=== PATIENT | male | born 1960 | race Caucasian/White ===

== ENCOUNTER 2016-06-16 16:13 | Emergency (ER) | payer OTHER ==
[~2016-06-16] VITALS: Ht 167.6 cm; Wt 114.6 kg
[~2016-06-16 16:13] MED LIST: ACIPHEX20 MG PO; ALTACE10 M1 PO; APIDRA100 UNITS/ PO; ASPIRIN81 M1 PO; BUSPAR10 MG PO; CLARITIN10 M3; DITROPAN5 MG PO; ERGOCALCIF50000 UNIT PO; FLOMAX0.4 MG PO; GLUCOPHAGE1000 MG PO; HUMALOG MI100 UNIT/1 SC; HUMALOG100 UNIT/1 SC; HYDROCHLOROTHIA25 MG PO; INDERAL20 MG PO; KEFLEX500 MG PO; LANTUS 10100 UNITS/ SC; LANTUS100 UNIT/2 SC; LEVEMIR100 UNIT/1 SQ; LORTAB 5-325 M1 EACH PO; Lopressor PO; METOPROLOL TART50 MG PO; MOBIC7.5 MG PO; NAPROSYN250 MG PO; OMEPRAZOLE40 M1 PO; PRAVASTATIN SOD40 MG PO; REPAN 50-325-41 EAC1 PO; SOTALOL80 MG PO; VITAMIN D250000 UNIT PO; VITAMIN D50000 UNI1 PO; ZOFRAN ODT4 MG PO
[2016-06-16 17:09] LABS: HEMATOCRIT 39.9 % (38.0-50.0); MCH 31.2 PG (29.0-34.0); MCHC 34.1 G/DL (30.0-36.0); MCV 91.5 FL (86-99); MEAN PLAT.VOLUME 11.6 uM^3 (9.0-12.4); PLATELET COUNT 169 K/uL (156-360); RBC DIS.WIDTH-CV 13.7 % (11.8-14.6); RBC DIS.WIDTH-SD 45.1 % (39-53); RED BLOOD COUNT 4.36 M/uL (4.00-5.50); WHITE BLOOD COUNT 7.4 K/uL (4.1-10.2)
[2016-06-16 17:18] LABS: ADD MIUA? YES; BILIRUBIN NEGATIVE; BLOOD MODERATE; COLOR YELLOW ((YELLOW)); GLUCOSE (STRIP) 50; KETONES 5; LEUKOCYTES NEGATIVE; NITRITE NEGATIVE; PROTEIN (STRIP) NEGATIVE; UROBILINOGEN 0.2 MG/DL (0.2-1.0)
[2016-06-16 17:21] LABS: CHLORIDE 107 mEq/L (99-109); POTASSIUM 4.5 mEq/L (3.7-5.4); SODIUM 142 mEq/L (136-147)
[2016-06-16 17:23] LABS: GLUCOSE 186 mg/dL (70-99)
[2016-06-16 17:24] LABS: ANION GAP 9 MEQ/L (2-14)
[2016-06-16 17:25] LABS: TOTAL BILIRUBIN 0.1 mg/dL (0.0-1.0)
[2016-06-16 17:27] LABS: ALKALINE PHOSPHATASE 65 IU/L (3-129); GFR ESTIMATE (CALCULATED) > 59 mL/min/
[2016-06-16 17:28] LABS: UREA NITROGEN (BUN) 18 mg/dL (9-23)
[2016-06-16 17:48] LABS: MUCUS TRACE /LPF
[2016-06-16 17:49] LABS: CASTS NONE SEEN /LPF; EPITHELIAL CELLS NONE SEEN /HPF; RED BLOOD CELLS NONE SEEN /HPF (0-5)
[2016-06-16 17:50] LABS: BACTERIA NONE SEEN /HPF; CRYSTALS PRESENT; URIC ACID CRYSTALS 4+ /HPF; WHITE BLOOD CELLS NONE SEEN /HPF (0-5)
[2016-06-16 18:22] LABS: POINT-OF-CARE METER ID UU13113800
[2016-06-16 18:31] LABS: CARBON DIOXIDE (BICARBONATE) 27.9 MEQ/L (20-31)
[2016-06-16] MEDS ORDERED: ZOFRAN ODT4 MG PO (19:46)
[2016-06-16] MEDS ORDERED: TORADOL10 MG PO (19:46)
[2016-06-16] MEDS ORDERED: PHENERGAN25 MG PR (19:46)
[2016-06-16] MEDS ORDERED: PERCOCET 5/31 TABLET PO (19:46)
[2016-06-16] MEDS ORDERED: FLOMAX0.4 MG PO (19:46)
[2016-06-16 20:36] VITALS: BP 143/87
[2016-06-19] MEDS ORDERED: HUMULIN R500 UNIT/1 SC ×2 (15:40)
== END 2016-06-16 20:38 | disposition home or self-care (01) ==
LOC: EME 16:13
PROVIDERS: Nurse Practitioner Family
DX: N20.0 Calculus of kidney (principal); R11.2 Nausea with vomiting, unspecified; E11.9 Type 2 diabetes mellitus without complications; I10 Essential (primary) hypertension; Z87.442 Personal history of urinary calculi
CPT/HCPCS: 74177; 80053; 81003; 82803; 82948; 85027; 99281; 99285; J1200; J1885; J2270; J2405; J3010; J7030

== ENCOUNTER 2016-06-22 20:42 | Emergency (ER) | payer OTHER ==
[~2016-06-22] VITALS: Ht 167.6 cm; Wt 115.1 kg
[~2016-06-22 20:42] MED LIST changes: +HUMULIN R500 UNIT/1 SC; +PERCOCET 5/31 TABLET PO; +PHENERGAN25 MG PR; +TORADOL10 MG PO
[2016-06-22 21:03] LABS: HEMATOCRIT 42.5 % (38.0-50.0); MCH 30.8 PG (29.0-34.0); MCHC 34.4 G/DL (30.0-36.0); MCV 89.7 FL (86-99); MEAN PLAT.VOLUME 10.9 uM^3 (9.0-12.4); PLATELET COUNT 245 K/uL (156-360); RBC DIS.WIDTH-CV 13.6 % (11.8-14.6); RBC DIS.WIDTH-SD 43.9 % (39-53); RED BLOOD COUNT 4.74 M/uL (4.00-5.50); WHITE BLOOD COUNT 10.8 K/uL (4.1-10.2)
[2016-06-22 21:04] LABS: ADD MIUA? NO; BILIRUBIN NEGATIVE; BLOOD NEGATIVE; COLOR YELLOW ((YELLOW)); GLUCOSE (STRIP) NEGATIVE; KETONES NEGATIVE; LEUKOCYTES NEGATIVE; NITRITE NEGATIVE; PROTEIN (STRIP) NEGATIVE; SPECIFIC GRAVITY 1.014 (1.000-1.030); UCUL ADDED? NO; UROBILINOGEN 0.2 MG/DL (0.2-1.0)
[2016-06-22 21:08] LABS: SODIUM 135 mEq/L (136-147)
[2016-06-22 21:10] LABS: GLUCOSE 95 mg/dL (70-99)
[2016-06-22 21:11] LABS: ANION GAP 10 MEQ/L (2-14)
[2016-06-22 21:13] LABS: GFR ESTIMATE (CALCULATED) 42 mL/min/
[2016-06-22 21:14] LABS: UREA NITROGEN (BUN) 20 mg/dL (9-23)
[2016-06-22 21:27] LABS: CHLORIDE 96 mEq/L (99-109)
[2016-06-22] MEDS ORDERED: COLACE100 MG PO (23:16)
[2016-06-22] MEDS ORDERED: MIRALAX17 GM PO (23:16)
[2016-06-22] MEDS ORDERED: FLEET ENEMA EX230 ML PR (23:16)
[2016-06-22 23:47] VITALS: BP 124/78
== END 2016-06-22 23:48 | disposition home or self-care (01) ==
LOC: EME 20:42
DX: R10.9 Unspecified abdominal pain (principal); K59.00 Constipation, unspecified; N20.0 Calculus of kidney; Z79.891 Long term (current) use of opiate analgesic; I10 Essential (primary) hypertension; E11.9 Type 2 diabetes mellitus without complications; Z79.4 Long term (current) use of insulin; Z79.82 Long term (current) use of aspirin; Z95.810 Presence of automatic (implantable) cardiac defibrillator; F17.200 Nicotine dependence, unspecified, uncomplicated
CPT/HCPCS: 74000; 80048; 81003; 85027; 99281; 99285

== ENCOUNTER → 2016-06-24 | Outpatient (CLI) | payer OTHER ==
[~2016-06-24] VITALS: Ht 167.6 cm; Wt 113.6 kg
[~2016-06-24] MED LIST changes: +COLACE100 MG PO; +FLEET ENEMA EX230 ML PR; +LOW DOSE ASPIRI81 M1 PO; +MIRALAX17 GM PO
[2016-06-24 08:33] LABS: POINT-OF-CARE METER ID UU13113694
[2016-06-24 10:39] LABS: POINT-OF-CARE METER ID UU13113819
== END | disposition home or self-care (01) ==
LOC: AMB 06:13
PROVIDERS: Urology
PROC: 0TF6XZZ Fragmentation in Right Ureter, External Approach (ICD-10-PCS; principal; 2016-06-24)
DX: N20.1 Calculus of ureter (principal)
CPT/HCPCS: 74010; 82948; J1170; J2250; J3010

== ENCOUNTER 2016-06-28 15:05 | Inpatient (IN) | payer OTHER ==
[~2016-06-28] VITALS: Ht 167.6 cm; Wt 111.7 kg
[~2016-06-28 15:05] MED LIST changes: -LOW DOSE ASPIRI81 M1 PO
[2016-06-28 15:51] LABS: EOSINOPHIL (%) 0.7 % (0-5); EOSINOPHIL COUNT 0.1 K/uL (0-0.3); HEMATOCRIT 41.7 % (38.0-50.0); IMMATURE GRANULOCYTE (%) 0.5 % (0.0-0.7); LYMPHOCYTE COUNT 1.7 K/uL (1.0-2.8); MCH 30.8 PG (29.0-34.0); MCHC 34.5 G/DL (30.0-36.0); MCV 89.1 FL (86-99); MEAN PLAT.VOLUME 10.3 uM^3 (9.0-12.4); MONOCYTE (%) 7.3 % (3-12); MONOCYTE COUNT 0.6 K/uL (0-0.8); NEUTROPHIL (%) 70.9 % (45-76); RBC DIS.WIDTH-CV 12.8 % (11.8-14.6); RBC DIS.WIDTH-SD 41.7 % (39-53); RED BLOOD COUNT 4.68 M/uL (4.00-5.50); WHITE BLOOD COUNT 8.5 K/uL (4.1-10.2)
[2016-06-28 15:53] LABS: PLATELET COUNT 334 K/uL (156-360)
[2016-06-28 16:03] LABS: CHLORIDE 91 mEq/L (99-109); POTASSIUM 4.9 mEq/L (3.7-5.4); SODIUM 126 mEq/L (136-147)
[2016-06-28 16:05] LABS: GLUCOSE 237 mg/dL (70-99)
[2016-06-28 16:06] LABS: ANION GAP 10 MEQ/L (2-14)
[2016-06-28 16:09] LABS: GFR ESTIMATE (CALCULATED) 39 mL/min/
[2016-06-28 16:10] LABS: UREA NITROGEN (BUN) 21 mg/dL (9-23)
[2016-06-28] MEDS ORDERED: LOW DOSE ASPIRI81 M1 PO (17:15)
[2016-06-28] MEDS ORDERED: SOTALOL80 MG PO (17:17)
[2016-06-28] MEDS ORDERED: FLOMAX0.4 MG PO (17:19)
[2016-06-28] MEDS ORDERED: COLACE100 MG PO (17:23)
[2016-06-28] MEDS ORDERED: MIRALAX17 GM PO (17:24)
[2016-06-28 21:05] VITALS: BP 134/71
[2016-06-28 21:34] LABS: POINT-OF-CARE METER ID UU13113700
[2016-06-28 23:00] VITALS: BP 139/74
[2016-06-29 03:50] VITALS: BP 137/63
[2016-06-29 06:41] LABS: HEMATOCRIT 39.6 % (38.0-50.0); MCH 30.5 PG (29.0-34.0); MCHC 34.1 G/DL (30.0-36.0); MCV 89.6 FL (86-99); MEAN PLAT.VOLUME 10.5 uM^3 (9.0-12.4); PLATELET COUNT 310 K/uL (156-360); RBC DIS.WIDTH-CV 12.6 % (11.8-14.6); RBC DIS.WIDTH-SD 41.6 % (39-53); RED BLOOD COUNT 4.42 M/uL (4.00-5.50); WHITE BLOOD COUNT 9.4 K/uL (4.1-10.2)
[2016-06-29 07:06] LABS: ALKALINE PHOSPHATASE 60 IU/L (3-129); ANION GAP 8 MEQ/L (2-14); CHLORIDE 93 MEQ/L (99-109); GFR ESTIMATE (CALCULATED) 44 mL/min/; POTASSIUM 4.5 MEQ/L (3.7-5.4); SAMPLE HEMOLYSIS CHECK 0; SAMPLE ICTERIC CHECK 0; SAMPLE LIPEMIA CHECK 0; SODIUM 129 MEQ/L (136-147); TOTAL BILIRUBIN 0.4 MG/DL (0.0-1.0); UREA NITROGEN (BUN) 20 mg/dL (9-23)
[2016-06-29 07:07] LABS: GLUCOSE 94 mg/dL (70-99)
[2016-06-29 08:30] VITALS: BP 126/77
[2016-06-29 11:37] VITALS: BP 139/76
[2016-06-29 12:44] LABS: POINT-OF-CARE METER ID UU14162513
[2016-06-29 16:14] VITALS: BP 134/71
[2016-06-29 17:37] LABS: POINT-OF-CARE METER ID UU14162513
[2016-06-29 18:28] VITALS: BP 134/67
[2016-06-29 20:00] VITALS: BP 140/80
[2016-06-29 21:33] LABS: POINT-OF-CARE METER ID UU14162508
[2016-06-29 22:40] LABS: ADD MIUA? YES; BILIRUBIN NEGATIVE; BLOOD SMALL; COLOR STRAW ((YELLOW)); GLUCOSE (STRIP) NEGATIVE; KETONES NEGATIVE; LEUKOCYTES NEGATIVE; NITRITE NEGATIVE; PROTEIN (STRIP) NEGATIVE; SPECIFIC GRAVITY 1.004 (1.000-1.030)
[2016-06-29 23:00] LABS: BACTERIA NONE SEEN /HPF; EPITHELIAL CELLS NONE SEEN /HPF; MUCUS NONE SEEN /LPF; RED BLOOD CELLS NONE SEEN /HPF (0-5); UCUL ADDED? NO; WHITE BLOOD CELLS NONE SEEN /HPF (0-5)
[2016-06-30] VITALS (7 sets, daily range): BP systolic 121–159; BP diastolic 61–85
[2016-06-30 07:53] LABS: ANION GAP 8 MEQ/L (2-14); CHLORIDE 97 MEQ/L (99-109); GFR ESTIMATE (CALCULATED) 44 mL/min/; GLUCOSE 114 mg/dL (70-99); POTASSIUM 4.7 MEQ/L (3.7-5.4); SAMPLE HEMOLYSIS CHECK 0; SAMPLE ICTERIC CHECK 0; SAMPLE LIPEMIA CHECK 0; SODIUM 133 MEQ/L (136-147); UREA NITROGEN (BUN) 21 mg/dL (9-23)
[2016-06-30 14:15] LABS: POINT-OF-CARE METER ID UU13113675
[2016-07-01 03:43] VITALS: BP 138/75
[2016-07-01 06:55] VITALS: BP 158/90
[2016-07-01 06:57] LABS: HEMATOCRIT 38.3 % (38.0-50.0); MCH 30.2 PG (29.0-34.0); MCHC 32.9 G/DL (30.0-36.0); MCV 91.8 FL (86-99); MEAN PLAT.VOLUME 10.2 uM^3 (9.0-12.4); PLATELET COUNT 316 K/uL (156-360); RBC DIS.WIDTH-SD 43.8 % (39-53); RED BLOOD COUNT 4.17 M/uL (4.00-5.50); WHITE BLOOD COUNT 10.1 K/uL (4.1-10.2)
[2016-07-01 07:26] LABS: ANION GAP 8 MEQ/L (2-14); CHLORIDE 99 MEQ/L (99-109); GFR ESTIMATE (CALCULATED) > 59 mL/min/; POTASSIUM 4.5 MEQ/L (3.7-5.4); SAMPLE HEMOLYSIS CHECK 0; SAMPLE ICTERIC CHECK 0; SAMPLE LIPEMIA CHECK 0; SODIUM 136 MEQ/L (136-147); UREA NITROGEN (BUN) 21 mg/dL (9-23)
[2016-07-01 07:31] LABS: GLUCOSE 177 mg/dL (70-99)
[2016-07-01 11:30] VITALS: BP 139/82
[2016-07-01 16:19] VITALS: BP 134/85
== END 2016-07-01 17:07 | disposition home or self-care (01) | DRG 669 ==
LOC: EME 15:05 → EDOF 18:07 → 5WEST 20:19 → 2EAST 06-29 14:03
PROVIDERS: Emergency Medicine; Hospitalist; Internal Medicine; Student in an Organized Health Care Education/Training Program; Urology
DX: N17.9 Acute kidney failure, unspecified (principal); N13.2 Hydronephrosis with renal and ureteral calculous obstruction; E87.1 Hypo-osmolality and hyponatremia; E11.65 Type 2 diabetes mellitus with hyperglycemia; I10 Essential (primary) hypertension; K59.09 Other constipation; T40.2X5A Adverse effect of other opioids, initial encounter; I42.6 Alcoholic cardiomyopathy; F10.10 Alcohol abuse, uncomplicated; J44.9 Chronic obstructive pulmonary disease, unspecified; I50.9 Heart failure, unspecified; K21.9 Gastro-esophageal reflux disease without esophagitis; G89.29 Other chronic pain; M54.9 Dorsalgia, unspecified; E66.9 Obesity, unspecified; Z68.39 Body mass index [BMI] 39.0-39.9, adult; F17.210 Nicotine dependence, cigarettes, uncomplicated; Z95.810 Presence of automatic (implantable) cardiac defibrillator; Z79.4 Long term (current) use of insulin; Z79.82 Long term (current) use of aspirin; Z66 Do not resuscitate; Z51.5 Encounter for palliative care
CPT/HCPCS: 36415; 74020; 74176; 76770; 80048; 80053; 81003; 82365 90; 82948; 83930; 84300; 85025; 85027; 93005; 99281; 99285; C1876; C1894; G0378; J0330; J0690; J1100; J1170; J1815; J2405; J3010; J7030; Q0177